=== PATIENT | male | born 1965 | race Caucasian/White ===

== ENCOUNTER 2020-08-13 04:50 | Day surgery (SDC) | payer BC ==
[2020-08-07 13:50] VITALS: BMI 38.0
[2020-08-13 08:36] VITALS: TEMP 98.2
[2020-08-13 10:11] VITALS: BP 112/71; PULSE 56
== END 2020-08-13 11:00 | disposition home or self-care (01) ==
LOC: JASU-ENDO 04:50
PROVIDERS: ATTEND Internal Medicine Gastroenterology
PROC: 0DJD8ZZ Inspection of Lower Intestinal Tract, Via Natural or Artificial Opening Endoscopic (ICD-10-PCS; principal; 2020-08-13 08:00)
DX: Z12.11 Encounter for screening for malignant neoplasm of colon (principal); K57.30 Diverticulosis of large intestine without perforation or abscess without bleeding; I10 Essential (primary) hypertension; K64.8 Other hemorrhoids